=== PATIENT | female | born 1985 ===

== ENCOUNTER → 2018-01-23 | Outpatient (CLI) | payer MEDICAID ==
[2014-11-23 14:01] VITALS: BMI 26.1
[~2018-01-23] MED LIST: ACET-1718 PO; FLUT9.9S; IBUP800T37 PO; PREN-127 PO
[2018-01-23 10:01] LABS: PLATELET COUNT, AUTOMATED 205 K/uL (150-450)
== END ==
LOC: LAB 09:41
PROVIDERS: ATTEND Obstetrics & Gynecology
DX: Z34.91 Encounter for supervision of normal pregnancy, unspecified, first trimester (principal); R82.79 Other abnormal findings on microbiological examination of urine
CPT/HCPCS: 36415; 81001; 85025; 86592; 86762; 86850; 86900; 86901; 87088; 87340